=== PATIENT | male | born 1955 | race Caucasian/White ===

== ENCOUNTER 2019-12-30 08:12 | Day surgery (SDC) | payer MEDICARE, BC ==
[2019-12-26 09:27] VITALS: BMI 19.7
--- NOTE | 2019-12-30 08:09 | P.GSHP ---
History of Present Illness H&P Date: 12/30/19 Chief Complaint: Right inguinal hernia 64-year-old male seen in April. Patient with complaints of pain right groin. Feels a mass there. Symptoms increased with lifting. No history of previous hernias. Past Medical History Past Medical History: COPD, Hypertension, Prostate Disorder, Thyroid Disorder History of Any Multi-Drug Resistant Organisms: None Reported Past Surgical History: No Surgical Hx Reported Past Anesthesia/Blood Transfusion Reactions: No Reported Reaction Smoking Status: Former smoker Medications and Allergies Home Medications Medication Instructions Recorded Confirmed Type Albuterol Nebulized [Ventolin 2.5 mg INHALATION Q6H PRN 12/26/19 12/26/19 History Nebulized] Bisoprolol-Hctz 5-6.25 mg [Ziac 1 tab PO DAILY 12/26/19 12/26/19 History 5-6.25 MG] Fluticasone/Umeclidin/Vilanter 1 inhalation INHALATION DAILY PRN 12/26/19 12/26/19 History [Trelegy Ellipta 100-62.5-25] Levothyroxine Sodium [Synthroid] 75 mcg PO DAILY 12/26/19 12/26/19 History Tamsulosin [Flomax] 0.4 mg PO BID 12/26/19 12/26/19 History Allergies Allergy/AdvReac Type Severity Reaction Status Date / Time No Known Allergies Allergy Verified 12/26/19 09:21 Surgical - Exam Physical exam: General: Well-developed, well-nourished HEENT: Normocephalic, sclerae nonicteric Abdomen: Nontender, nondistended, reducible right inguinal hernia, no palpable hernia on the left Extremities: No edema Neuro: Alert and oriented Assessment and Plan (1) Right inguinal hernia Narrative/Plan: Will proceed with the da Angel assisted laparoscopic repair right inguinal hernia with mesh, possible bilateral, possible open. Risks of bleeding, infection, recurrence, bladder and bowel injury, numbness, nerve injury, conversion to an open procedure were discussed with the patient. The patient understands and wishes to proceed. Status: Acute Code(s): K40.90 - UNIL INGUINAL HERNIA, W/O OBST OR GANGR, NOT SPCF RECUR SNOMED Code(s): 479910156
[~2019-12-30 08:12] MED LIST: DEXAMETHASONE SOD PHOSPHATE 10 MG/ML 1 ML VIAL IV ONE; HEPARIN SODIUM,PORCINE 5,000 UNIT/ML 1 ML VIAL SQ ONE; HYDROmorphone 0.5 MG/0.5 ML SYRINGE IVP PRN; LACTATED RINGERS 1,000 ML IV SCH; LIDOCAINE 1% (10MG/ML) FOR IV START INTRADERMA PRN; MIDAZOLAM 2 MG/2 ML VIAL IV PRN; ONDANSETRON 4 MG/2 ML VIAL IVP ONE
[2019-12-30] MEDS ORDERED: TAMSULOSIN 0.4 MG CAP.ER.24H PO ONE (09:07)
[2019-12-30] MEDS ORDERED: HEPARIN SODIUM,PORCINE 5,000 UNIT/ML 1 ML VIAL SQ ONE (09:16)
[2019-12-30] MEDS ORDERED: KETAMINE 10 MG/ML 20 ML VIAL ONE (09:58)
[2019-12-30] MEDS ORDERED: MIDAZOLAM 2 MG/2 ML VIAL ONE (09:58)
[2019-12-30] MEDS ORDERED: fentaNYL (PF) 50 MCG/ML 2 ML AMP ONE (09:58)
[2019-12-30] MEDS ORDERED: KETOROLAC 30 MG/ML 1 ML VIAL ONE (09:58)
[2019-12-30] MEDS ORDERED: NEOSTIGMINE 1 MG/ML 10 ML VIAL ONE (09:58)
[2019-12-30] MEDS ORDERED: GLYCOPYRROLATE 0.2 MG/ML 2 ML VIAL ONE (09:58)
[2019-12-30] MEDS ORDERED: LIDOCAINE 1% INJ 10MG/ML (20 ML MDV) ONE (09:58)
[2019-12-30] MEDS ORDERED: ROCURONIUM BROMIDE 10 MG/ML 5 ML VIAL IV ONE (09:58)
[2019-12-30] MEDS ORDERED: PROPOFOL 10 MG/ML 20 ML VIAL IV ONE (09:58)
[2019-12-30] MEDS ORDERED: BUPIVACAINE (PF) 0.25% 30 ML VIAL SQ ONE ×2 (10:22)
[2019-12-30] MEDS ORDERED: LACTATED RINGERS 1,000 ML IV ONE (11:08)
[2019-12-30] MEDS ORDERED: NALOXONE 0.4 MG/ML 1 ML VIAL IV PRN (11:09)
[2019-12-30] MEDS ORDERED: HYDROcodone/APAP 5-325MG 1 EACH TAB PO PRN (11:09)
--- NOTE | 2019-12-30 11:19 | P.OP ---
Date of Procedure: 12/30/19 Procedure(s) Performed: PREOPERATIVE DIAGNOSIS: Right inguinal hernia POSTOPERATIVE DIAGNOSIS: Same PROCEDURE: Laparoscopic repair right direct inguinal hernia with the da Angel robot assistance with mesh SURGEON: Velasquez EBL: Minimal ANESTHESIA: General COMPLICATIONS: None OPERATIVE PROCEDURE: Patient was placed in the operating table in the supine position. The patient was placed under general anesthesia. The abdomen was prepped and draped in usual sterile fashion. A small curvilinear supraumbilical incision was made. The fascia was retracted anteriorly with Gopal forceps. The Veress needle was inserted. The saline drop test was normal. Insufflation took place to 15 mmHg. An 8 mm trocar was placed into the peritoneal cavity. 2 additional 8 mm trochars were placed in the right upper quadrant and left upper quadrant under visualization. The robotic arms were then brought in and docked into place. The fenestrated bipolar was used in the left arm and the laparoscopic zuleima was utilized in the right arm. A 30 8 mm scope was used in the up position. The peritoneal cavity was inspected. No visible hernia on left, obvious small direct hernia on the right. The peritoneum was incised in a horizontal fashion cephalad to the internal inguinal ring. Following that careful dissection of the preperitoneal space took place. This took place using both electrocautery, sharp dissection but primarily blunt dissection. Visualization of the pubic tubercle and Torey's ligament took place medially. Full dissection took place laterally as well. The hernia sac was fully dissected. Once we had adequate space the 15 x 10 progrip mesh was advanced into the preperitoneal space and flattened out appropriately to cover all potential hernia sites. No sutures were used. The peritoneal defect was then closed using a locking 2-0 VLok suture. The pneumoperitoneum was then evacuated. The skin of all 3 sites was closed using a 4-0 Monocryl stitch. Skin glue was then applied. DISPOSITION: Stable to recovery room
[2019-12-30 11:26] VITALS: TEMP 97.2
[2019-12-30 12:08] VITALS: RESP 16
[2019-12-30 12:52] VITALS: BP 144/78; PULSE 50
== END 2019-12-30 14:15 | disposition home or self-care (01) ==
LOC: OR 08:12
PROVIDERS: ATTEND Surgery
DX: K40.90 Unilateral inguinal hernia, without obstruction or gangrene, not specified as recurrent (principal); J44.9 Chronic obstructive pulmonary disease, unspecified; I10 Essential (primary) hypertension; N42.9 Disorder of prostate, unspecified; E07.9 Disorder of thyroid, unspecified; Z87.891 Personal history of nicotine dependence; Z79.51 Long term (current) use of inhaled steroids; Z79.890 Hormone replacement therapy; Z79.899 Other long term (current) drug therapy; Z98.890 Other specified postprocedural states
CPT/HCPCS: 49650; J2250; J1644; J1100; J2710; J0690; J2405; J2001; J3010; J1885; J2704

== ENCOUNTER → 2023-05-03 | Outpatient (CLI) | payer MEDICARE ==
[2023-05-03 15:44] LABS: Basophils # (A) 0.04 X 10*3/uL (0.00-0.10); Basophils % (A) 0.8 %; Eosinophils # (A) 0.17 X 10*3/uL (0.04-0.35); Eosinophils % (A) 3.5 %; HCT 41.4 % (39.6-50.0); HGB 13.7 g/dL (13.0-17.0); Lymphocytes # (A) 0.89 X 10*3/uL (0.90-5.00); Lymphocytes % (A) 18.6 %; MCH 31.9 pg (27.0-32.0); MCHC 33.1 g/dL (32.0-37.0); MCV 96.5 FL (80.0-97.0); Mean Platelet Volume 9.3 FL (9.5-12.2); Monocytes # (A) 0.54 X 10*3/uL (0.20-1.00); Monocytes % (A) 11.3 %; NRBC Per 100 WBC 0 X 10*3/uL (0.00-0.01); Neutrophils # (A) 3.14 X 10*3/uL (1.80-7.70); Neutrophils % (A) 65.6 %; Platelet Count 233 X 10*3/uL (140-440); RBC 4.29 X 10*6/uL (4.40-5.60); RDW 13.3 % (11.5-14.5); WBC 4.79 X 10*3/uL (4.50-10.00)
[2023-05-03 16:12] LABS: Blood Urea Nitrogen 16.7 mg/dL (9.0-27.0); Calcium 9.2 mg/dL (8.7-10.3); Carbon Dioxide 29.6 mmol/L (21.6-31.8); Chloride 102 mmol/L (96-109); Glucose 112 mg/dL (70-110); Potassium 4.6 mmol/L (3.5-5.5); Sodium 141 mmol/L (135-145)
[2023-05-03 16:36] LABS: Appearance,Urine Clear (Clear); Bilirubin,Urine Negative (Negative); Blood,Urine Negative (Negative); Color,Urine Yellow (Yellow); Ketones,Urine Negative (Negative); Nitrite,Urine Negative (Negative); Specific Gravity,Urine 1.008 (1.001-1.030); Urobilinogen,Urine 0.2 E.U./DL
== END | disposition home or self-care (01) ==
LOC: LABPAT 09:59
PROVIDERS: ATTEND Urology
DX: Z01.812 Encounter for preprocedural laboratory examination (principal); N21.9 Calculus of lower urinary tract, unspecified
CPT/HCPCS: 36415; 80048; 81003; 85025; 87086

== ENCOUNTER 2023-05-09 09:29 | Day surgery (SDC) | payer MEDICARE ==
--- NOTE | 2023-05-09 08:22 | P.HPIHPCON ---
History of Present Illness H&P Date: 05/09/23 Chief Complaint: Bladder stones This is a 67-year-old male with 2 large bladder stones, he is having obstructive urinary symptoms secondary to his stone. Option of a cystoscopy with cystolitholapaxy was discussed with him in detail. Discussed risk which includes but not limited to bleeding, infection, injury to the bladder. Risk of anesthesia was also discussed. He understood all the risk and agreed to proceed Consent for Procedure: I have explained the operation/procedure to the patient, including the risks, benefits, side effects, alternative therapies (including not receiving the proposed treatment or service), the likelihood of the patient achieving his/her goals, and potential recuperation problems for the procedure/sedation/analgesia, as well as any blood products, if indicated. I also explained to the patient the risks, benefits and side effects of the alternatives, as well as the risks related to not receiving the proposed procedure, care, treatment, or services. Past Medical History Past Medical History: COPD, Hypertension, Prostate Disorder, Thyroid Disorder Additional Past Medical History / Comment(s): kidney stones, History of Any Multi-Drug Resistant Organisms: None Reported Past Surgical History: Hernia Repair Additional Past Surgical History / Comment(s): inguinal hernia repair Past Anesthesia/Blood Transfusion Reactions: No Reported Reaction Smoking Status: Former smoker - Past Family History Mother Family Medical History: Cancer Additional Family Medical History / Comment(s): non hodgkins lymphoma Medications and Allergies Home Medications Medication Instructions Recorded Confirmed Type Albuterol Nebulized [Ventolin 2.5 mg INHALATION Q6H PRN 12/26/19 05/03/23 Histo ry Nebulized] Bisoprolol-Hctz 5-6.25 mg [Ziac 1 tab PO DAILY 12/26/19 05/03/23 History 5-6.25 MG] Fluticasone/Umeclidin/Vilanter 1 inhalation INHALATION DAILY PRN 12/26/19 05/03/23 History [Trelegy Ellipta 100-62.5-25] Levothyroxine Sodium [Synthroid] 75 mcg PO DAILY 12/26/19 05/03/23 History Tamsulosin [Flomax] 0.4 mg PO BID 12/26/19 05/03/23 History Finasteride [Proscar] 5 mg PO DAILY 05/03/23 05/03/23 History Allergies Allergy/AdvReac Type Severity Reaction Status Date / Time No Known Allergies Allergy Verified 05/03/23 14:28 Surgical - Exam - General no distress, no pain - Eyes normal ocular movement, no pale - ENT normal nares, normal mucosa - Respiratory normal expansion, normal respiratory effort - Abdomen Abdomen: soft, non tender Assessment and Plan Assessment: OR for cystoscopy, with cystolitholapaxy
[~2023-05-09 09:29] MED LIST changes: -DEXAMETHASONE SOD PHOSPHATE 10 MG/ML 1 ML VIAL IV ONE; +DEXAMETHASONE SOD PHOSPHATE 4 MG/ML 1 ML VIAL IV ONE; -HEPARIN SODIUM,PORCINE 5,000 UNIT/ML 1 ML VIAL SQ ONE; +METOCLOPRAMIDE 5 MG/ML 2 ML VIAL IVP PRN; -MIDAZOLAM 2 MG/2 ML VIAL IV PRN
--- NOTE | 2023-05-09 09:56 | XR ---
EXAMINATION TYPE: XR KUB DATE OF EXAM: 05/09/2023 Comparison: None Clinical History: [age]-year-old male preop kidney stones, bladder stone Findings: Nonobstructive bowel gas pattern. Moderate stool burden. Right pelvic calcification measuring 1.7 cm. Degenerative changes lower lumbar spine. Bowel content largely obscures the renal shadows. Impression: A 1.7 cm right bladder calculus.
[2023-05-09] MEDS: LACTATED RINGERS 1,000 ML IV ONE (10:41)
[2023-05-09] MEDS: ONDANSETRON 4 MG/2 ML VIAL IVP ONE (10:49)
[2023-05-09] MEDS: DEXAMETHASONE SOD PHOSPHATE 4 MG/ML 1 ML VIAL IVP ONE (10:49)
[2023-05-09] MEDS ORDERED: ePHEDrine 50 MG/ML 1 ML VIAL ONE (12:13)
[2023-05-09] MEDS ORDERED: MIDAZOLAM 2 MG/2 ML VIAL ONE (12:13)
[2023-05-09] MEDS ORDERED: fentaNYL (PF) 50 MCG/ML 2 ML AMP ONE (12:13)
[2023-05-09] MEDS ORDERED: PHENYLEPHRINE 10 MG/ML VIAL ONE (12:13)
[2023-05-09] MEDS ORDERED: LIDOCAINE 1% INJ 10MG/ML (20 ML MDV) ONE (12:13)
[2023-05-09] MEDS ORDERED: PROPOFOL 10 MG/ML 20 ML VIAL IV ONE (12:13)
--- NOTE | 2023-05-09 13:28 | P.OP ---
Date of Procedure: 05/09/23 Preoperative Diagnosis: Bladder stone Postoperative Diagnosis: Same Procedure(s) Performed: Cystolitholapaxy (<2.5cm) Implants: none Anesthesia: GETA Estimated Blood Loss (ml): 25 Pathology: other (Bladder stone) Condition: stable Disposition: PACU Indications for Procedure: This is a 67-year-old male with 2 large bladder stones, he is having obstructive urinary symptoms secondary to his stone. Option of a cystoscopy with cystolitholapaxy was discussed with him in detail. Discussed risk which includes but not limited to bleeding, infection, injury to the bladder. Risk of anesthesia was also discussed. He understood all the risk and agreed to proceed Operative Findings: Large bladder stone, significant median lobe enlargement with intravesical extension Description of Procedure: Patient brought to the operating room, general anesthesia was induced. He was prepped and draped in sterile fashion and placed in dorsolithotomy position. Cystoscopy fitted with 22 Swazi sheath was inserted per urethra, cystoscopy was performed which showed a large stone within the bladder, patient had a median lobe enlargement with intravesical extension, there was no other abnormality within the bladder. The prostate was occlusive. Using the holmium laser the stone was fragmented, the stone fragments were irrigated out. Repeat cystoscopy showed no sizable fragments or injury to the bladder. At this time the cystoscope was withdrawn and a 20 Swazi Fuentes was placed with return of clear urine. The Fuentes was irrigated to clear. Patient tolerated procedure well was taken to recovery in stable condition
[2023-05-09 13:35] VITALS: TEMP 98.4
[2023-05-09] MEDS ORDERED: ACETAMINOPHEN TAB 325 MG TAB ONE (15:01)
[2023-05-09] MEDS: ACETAMINOPHEN TAB 325 MG TAB PO ONE (15:02)
[2023-05-09 15:11] VITALS: RESP 18
[2023-05-09 15:43] VITALS: BP 155/83; PULSE 64
== END 2023-05-09 16:58 | disposition home or self-care (01) ==
LOC: OR 09:29
PROVIDERS: ATTEND Urology
DX: N21.0 Calculus in bladder (principal); J44.9 Chronic obstructive pulmonary disease, unspecified; I10 Essential (primary) hypertension; N42.9 Disorder of prostate, unspecified; E07.9 Disorder of thyroid, unspecified; Z98.890 Other specified postprocedural states; Z87.891 Personal history of nicotine dependence; Z79.51 Long term (current) use of inhaled steroids; Z79.890 Hormone replacement therapy; Z79.899 Other long term (current) drug therapy; Z87.442 Personal history of urinary calculi; Z80.7 Family history of other malignant neoplasms of lymphoid, hematopoietic and related tissues
CPT/HCPCS: 52317; 82365; 74018; C1769; J2250; J1100; J0690; J2405; J2001; J3010; J2704; J2371